=== PATIENT | female | born 1945 | race Caucasian/White ===

== ENCOUNTER → 2016-07-21 | Day surgery (SDC) | payer MEDICARE, SELFPAY ==
[~2016-07-21] VITALS: Ht 162.6 cm; Wt 85.7 kg
== END ==
LOC: OPS 08:59 → OUTPT-CL 08:59
PROC: 0DJD8ZZ Inspection of Lower Intestinal Tract, Via Natural or Artificial Opening Endoscopic (ICD-10-PCS; principal; 2016-07-21)
DX: Z12.11 Encounter for screening for malignant neoplasm of colon (principal); I25.10 Atherosclerotic heart disease of native coronary artery without angina pectoris; F32.9 Major depressive disorder, single episode, unspecified; E11.9 Type 2 diabetes mellitus without complications; E78.5 Hyperlipidemia, unspecified; K21.9 Gastro-esophageal reflux disease without esophagitis; R53.83 Other fatigue; I10 Essential (primary) hypertension; M19.90 Unspecified osteoarthritis, unspecified site; Z87.891 Personal history of nicotine dependence; D64.9 Anemia, unspecified; Z88.5 Allergy status to narcotic agent; Z88.8 Allergy status to other drugs, medicaments and biological substances; Z79.899 Other long term (current) drug therapy; Z79.82 Long term (current) use of aspirin; Z79.02 Long term (current) use of antithrombotics/antiplatelets; Z79.4 Long term (current) use of insulin
CPT/HCPCS: 45378; 82962; 99070; J2704; J7635

== ENCOUNTER 2016-08-24 18:59 | Emergency (ER) | payer MEDICARE, OTHER ==
[2016-08-24 19:28] LABS: URINE BILIRUBIN NEGATIVE (NEGATIVE); URINE BLOOD TRACE (NEGATIVE); URINE KETONE NEGATIVE (NEGATIVE); URINE LEUKOCYTE ESTERASE 1+ (NEGATIVE); URINE NITRATE NEGATIVE (NEGATIVE); URINE PROTEIN 2+ (NEGATIVE); UROBILINOGEN NORMAL mg/dL (<1.0)
[2016-08-24 19:38] LABS: URINE BACTERIA 3+ (NONE SEEN); URINE GLUCOSE (UA) 1000 mg/dL (NORMAL); URINE RBC 0-5 /[HPF] (0-2); URINE SQUAMOUS EPITHELIAL CELL 0-10 /[HPF] (NONE SEEN); URINE WBC TNTC /[HPF] (0-5)
[2016-08-24 19:47] LABS: BASO % 0.4 % (0.1-1.2); EOS # 0.1 10_X3_uL (0.0-0.4); EOS % 1.9 % (0.7-5.8); GRAN # 6.2 10_X3_uL (1.6-6.1); GRAN % 83.2 % (34.0-71.1); HEMATOCRIT 41.2 % (34-45); HEMOGLOBIN 13.5 g/dL (11.2-15.7); LYMPH # 0.9 10_X3_uL (1.2-3.7); LYMPH % 12.4 % (19.3-51.7); MEAN CORPUSCULAR HEMOGLOBIN 25.5 pg (27.0-33.0); MEAN CORPUSCULAR HGB CONC 32.8 g/dL (32.0-36.0); MEAN CORPUSCULAR VOLUME 77.7 fL (79-95); MEAN PLATELET VOLUME 10.4 fl (7.5-11.5); MONO # 0.2 10_X3_uL (0.2-0.9); MONO % 2.1 % (4.7-12.5); PLATELET COUNT 242 x10_3/uL (182-369); RED CELL DISTRIBUTION WIDTH 15.5 % (11.7-14.4); WHITE BLOOD COUNT 7.5 x10_3/uL (4.0-10.0)
[2016-08-24 19:58] LABS: BLOOD UREA NITROGEN 12 mg/dL (7-18); CALCIUM 10.1 mg/dL (8.7-10.7); CARBON DIOXIDE 30 mmol/L (21-32); CREATININE 0.7 mg/dL (0.6-1.3); GLUCOSE,RANDOM 221 mg/dL (70-99); SODIUM 136 mmol/L (136-145)
== END 2016-08-24 22:10 | disposition home or self-care (01) ==
LOC: ER 18:59
PROVIDERS: Emergency Medicine
DX: N30.90 Cystitis, unspecified without hematuria (principal); R10.9 Unspecified abdominal pain; R11.10 Vomiting, unspecified; Z87.442 Personal history of urinary calculi; E11.9 Type 2 diabetes mellitus without complications; I10 Essential (primary) hypertension; M19.90 Unspecified osteoarthritis, unspecified site; Z88.8 Allergy status to other drugs, medicaments and biological substances; Z79.899 Other long term (current) drug therapy; Z79.4 Long term (current) use of insulin
CPT/HCPCS: 36415; 74150; 80048; 81001; 85025; 87086; 87186; 96372; 99070; 99284; 99284-25